=== PATIENT | female | born 1960 | race American Indian/Alaskan Native ===

== ENCOUNTER 2017-02-13 08:27 | Outpatient (CLI) | payer OTHER ==
--- NOTE | 2017-02-13 09:16 | XRay Report ---
RIGHT HAND: History: Right hand pain The bony architecture is intact. Bony alignment is normal. No soft tissue abnormalities are seen. The joint spaces appear preserved. IMPRESSION: Normal right hand.
== END 2017-02-13 08:28 | disposition home or self-care (01) ==
LOC: SPVIMAG 08:27
PROVIDERS: ATTEND Orthopaedic Surgery Sports Medicine
DX: M79.641 Pain in right hand (principal)